=== PATIENT | male | born 1985 | race American Indian/Alaskan Native ===

== ENCOUNTER 2018-04-13 21:41 | Emergency (ER) | payer MEDICAID ==
[2018-04-13 21:48] VITALS: BP 184/109
--- NOTE | 2018-04-14 02:06 | Emergency Department Report ---
ED ENT HPI - General Chief complaint: Earache Stated complaint: LT EAR BUMP Time Seen by Provider: 04/14/18 01:59 Source: patient Mode of arrival: Ambulatory Limitations: No Limitations - History of Present Illness Initial comments: Patient 32-year-old male with left ear abscess abscess inner lobe, pain drainage yellow white thick malodorous x 3 days pain 4/10 soreness to palpation relieved by rest there is no hearing loss no fever on chills headache no dizziness no lightheadedness MD complaint: ear pain Onset/Timin -: days(s) Location: L ear Severity: moderate Severity scale (0 -10): 5 Quality: sharp Consistency: intermittent Improves with: rest Worsens with: movement, other (palpation) Associated Symptoms: discharge from ear. denies: tinnitus - Related Data Previous Rx's Medication Instructions Recorded Last Taken Type Cipro/Dexameth 0.3/0.1% [Ciprodex 4 drops OT BID 7 Days #1 bottle 04/14/18 Unknown Rx OTIC] Ibuprofen [Ibu] 800 mg PO TID PRN #30 tablet 04/14/18 Unknown Rx Allergies Allergy/AdvReac Type Severity Reaction Status Date / Time Penicillins Allergy Hives Verified 04/13/18 22:02 ED Dental HPI - General Chief complaint: Earache Stated complaint: LT EAR BUMP Time Seen by Provider: 04/14/18 01:59 Source: patient Mode of arrival: Ambulatory Limitations: No Limitations - Related Data Previous Rx's Medication Instructions Recorded Last Taken Type Cipro/Dexameth 0.3/0.1% [Ciprodex 4 drops OT BID 7 Days #1 bottle 04/14/18 Unknown Rx OTIC] Ibuprofen [Ibu] 800 mg PO TID PRN #30 tablet 04/14/18 Unknown Rx Allergies Allergy/AdvReac Type Severity Reaction Status Date / Time Penicillins Allergy Hives Verified 04/13/18 22:02 ED Review of Systems ROS: Stated complaint: LT EAR BUMP Other details as noted in HPI Constitutional: denies: chills, fever Eyes: denies: eye pain, eye discharge, vision change ENT: as per HPI, ear pain Respiratory: denies: cough, shortness of breath, wheezing Cardiovascular: denies: chest pain, palpitations Endocrine: no symptoms reported Gastrointestinal: denies: abdominal pain, nausea, diarrhea Genitourinary: denies: urgency, dysuria Musculoskeletal: denies: back pain, joint swelling, arthralgia Skin: denies: rash, lesions Neurological: denies: headache, weakness, paresthesias Psychiatric: as per HPI Hematological/Lymphatic: denies: easy bleeding, easy bruising ED Past Medical Hx - Past Medical History Previous Medical History?: No - Surgical History Past Surgical History?: No - Social History Smoking Status: Never Smoker Substance Use Type: None - Medications Home Medications: Home Medications Medication Instructions Recorded Confirmed Last Taken Type Cipro/Dexameth 0.3/0.1% [Ciprodex 4 drops OT BID 7 Days #1 bottle 04/14/18 Unknown Rx OTIC] Ibuprofen [Ibu] 800 mg PO TID PRN #30 tablet 04/14/18 Unknown Rx ED Physical Exam - General Limitations: No Limitations General appearance: alert, in no apparent distress - Head Head exam: Present: atraumatic - Eye Eye exam: Present: normal appearance, PERRL, EOMI - ENT ENT exam: Present: mucous membranes moist - Expanded ENT Exam Expanded Ear exam: Present: other (pinna abscess ) TM/Canal exam: Erythema: Left TM, Canal Discharge: Left TM, Canal Tenderness: Left TM Mouth exam: Present: normal external inspection Teeth exam: Present: normal inspection Throat exam: Positive: normal inspection - Neck Neck exam: Present: normal inspection. Absent: tenderness, meningismus, lymphadenopathy, thyromegaly - Respiratory Respiratory exam: Present: normal lung sounds bilaterally. Absent: respiratory distress, chest wall tenderness - Cardiovascular Cardiovascular Exam: Present: regular rate, normal rhythm, normal heart sounds. Absent: systolic murmur, diastolic murmur, rubs, gallop - GI/Abdominal GI/Abdominal exam: Present: soft, normal bowel sounds - Rectal Rectal exam: Present: deferred - Extremities Exam Extremities exam: Present: normal inspection - Back Exam Back exam: Present: normal inspection - Neurological Exam Neurological exam: Present: alert, oriented X3, CN II-XII intact, normal gait, reflexes normal - Psychiatric Psychiatric exam: Present: normal affect, normal mood - Skin Skin exam: Present: warm, dry, intact, normal color. Absent: rash ED Course Vital Signs 04/13/18 04/13/18 21:45 21:48 Temperature 98.7 F Pulse Rate 84 Respiratory 16 Rate Blood Pressure 184/109 [Right] O2 Sat by Pulse 98 Oximetry ED Medical Decision Making - Medical Decision Making This is otitis externa plan Ciprodex follow with ENT in 2-3 days ibuprofen when necessary pain patient verbalized agreement and understanding with same to DC to home stable condition at this time. Critical care attestation.: If time is entered above; I have spent that time in minutes in the direct care of this critically ill patient, excluding procedure time. ED Disposition Clinical Impression: Otitis media Qualifiers: Otitis media type: suppurative Chronicity: acute Laterality: left Recurrence: not specified as recurrent Spontaneous tympanic membrane rupture: without spontaneous rupture Qualified Code(s): H66.002 - Acute suppurative otitis media without spontaneous rupture of ear drum, left ear Abscess of ear canal Qualifiers: Laterality: left Qualified Code(s): H60.02 - Abscess of left external ear Disposition: DC-01 TO HOME OR SELFCARE Is pt being admited?: No Does the pt Need Aspirin: No Condition: Good Instructions: Otitis Externa (ED), Abscess (ED) Prescriptions: Cipro/Dexameth 0.3/0.1% [Ciprodex OTIC] 4 drops OT BID 7 Days #1 bottle Ibuprofen [Ibu] 800 mg PO TID PRN #30 tablet PRN Reason: pain Referrals: [facility] [Other] - 3-5 Days Forms: Work/School Release Form(ED) Time of Disposition: 02:13
== END 2018-04-14 02:16 | disposition home or self-care (01) ==
LOC: ED 21:41
DX: H66.002 Acute suppurative otitis media without spontaneous rupture of ear drum, left ear (principal); H60.02 Abscess of left external ear; Z88.0 Allergy status to penicillin
CPT/HCPCS: 99282

== ENCOUNTER 2018-05-19 00:42 | Emergency (ER) | payer SELFPAY ==
[2018-05-19 00:57] VITALS: BP 170/115
[2018-05-19] MEDS ORDERED: REGLAN IV ONE (01:50)
[2018-05-19] MEDS ORDERED: TORADOL IV ONE (01:50)
[2018-05-19] MEDS ORDERED: BENADRYL IV ONE (01:50)
--- NOTE | 2018-05-19 01:57 | Emergency Department Report ---
ED Headache HPI - General Chief Complaint: Headache Stated Complaint: HEADACHE Time Seen by Provider: 05/19/18 01:46 - History of Present Illness Initial Comments: 33-year-old -[place] male presents to the emergency room for headache with photosensitivity with no trauma that started Wednesday morning. Patient denies any nausea vomiting. He does admit to a tooth pain in the left upper jaw and sore throat. Patient tried [id number] Goody powders which she reports has not helped. It was noted the patient's blood pressure was elevated in triage of 170/115 with no past medical history of hypertension. Patient currently takes no medications on a daily basis and is allergic to penicillin which causes hives. Quality: severe, sharp, throbbing Recent Head Trauma: no recent headache/trauma Modifying Factors: improves with: exposure to light Associated Symptoms: facial pain. denies: loss of consciousness, nausea/ vomiting, nasal congestion, nasal drainage (left upper jaw pain), numbness in legs/feet, seizures, sinus infection, stiff neck, vision changes, weakness Allergies/Adverse Reactions: Allergies Penicillins Allergy (Verified 04/13/18 22:02) Hives Home Medications: Ambulatory Orders Cipro/Dexameth 0.3/0.1% [Ciprodex OTIC] 4 drops OT BID 7 Days #1 bottle Ibuprofen [Ibu] 800 mg PO TID PRN #30 tablet 04/14/18 Clindamycin [Clindamycin CAP] 300 mg PO Q8H #30 cap 05/19/18 Ibuprofen [Motrin 600 MG tab] 600 mg PO Q8H PRN #30 tablet 05/19/18 ED Review of Systems ROS: Stated complaint: HEADACHE Other details as noted in HPI Comment: All other systems reviewed and negative Constitutional: denies: chills, fever Eyes: denies: vision change ENT: throat pain, dental pain Cardiovascular: denies: chest pain Gastrointestinal: denies: nausea, vomiting ED Past Medical Hx - Past Medical History Previous Medical History?: No - Surgical History Past Surgical History?: No - Social History Smoking Status: Never Smoker Substance Use Type: None - Medications Home Medications: Home Medications Medication Instructions Recorded Confirmed Last Taken Type Cipro/Dexameth 0.3/0.1% [Ciprodex 4 drops OT BID 7 Days #1 bottle 04/14/18 Unknown Rx OTIC] Ibuprofen [Ibu] 800 mg PO TID PRN #30 tablet 04/14/18 Unknown Rx Clindamycin [Clindamycin CAP] 300 mg PO Q8H #30 cap 05/19/18 Unknown Rx Ibuprofen [Motrin 600 MG tab] 600 mg PO Q8H PRN #30 tablet 05/19/18 Unknown Rx ED Physical Exam - General Limitations: No Limitations ED Course Vital Signs 05/19/18 05/19/18 00:50 00:51 Temperature 99.9 F H 99.9 F H Pulse Rate 95 H 95 H Respiratory 18 18 Rate Blood Pressure 170/115 170/115 O2 Sat by Pulse 98 98 Oximetry ED Medical Decision Making - Radiology Data Radiology results: report reviewed FINAL REPORT EXAM: CT HEAD/BRAIN WO CON HISTORY: LARIOS COMPARISON: None available. TECHNIQUE: Axial images obtained skull base through vertex. FINDINGS: No acute intracranial hemorrhage, midline shift or pathologic extra axial fluid collection. Ventricles and cisterns are normal in size and configuration for the patient's age. Garcia-white differentiation preserved. Calvarium grossly intact. Visualized ocular globes are grossly unremarkable. Opacification left sphenoid sinus. Small air-fluid levels within the visualized maxillary sinuses. Mild mucosal thickening right sphenoid sinus and moderate mucosal thickening of the ethmoid air cells. Mastoid air cells are clear. IMPRESSION: No grossly acute intracranial abnormality. Transcribed By: LMA Dictated By: DAVID VELASQUEZ MD Electronically Authenticated By: DAVID VELASQUEZ MD Signed Date/Time: 05/19/18202 DD/ 2 TD/TT: 05/19/18202 - Medical Decision Making Patient has been evaluated by this provider fast track. Patient was given IV with Reglan, Benadryl, Toradol. CT scan was shows no acute abdomen allergies Blood pressure to be rechecked Critical care attestation.: If time is entered above; I have spent that time in minutes in the direct care of this critically ill patient, excluding procedure time. ED Disposition Clinical Impression: Partial loss of tooth due to caries, Sorethroat, Elevated BP without diagnosis of hypertension Headache Qualifiers: Headache type: unspecified Headache chronicity pattern: acute headache Intractability: intractable Qualified Code(s): R51 - Headache Disposition: DC-01 TO HOME OR SELFCARE Is pt being admited?: No Does the pt Need Aspirin: No Condition: Stable Instructions: Dental Caries (ED), Acute Headache (ED) Additional Instructions: Please complete antibiotics as prescribed. Take pain medication as needed. Please follow up with a dental provider I have this did several below as well as with the handout. Prescriptions: Clindamycin [Clindamycin CAP] 300 mg PO Q8H #30 cap Ibuprofen [Motrin 600 MG tab] 600 mg PO Q8H PRN #30 tablet PRN Reason: Pain Referrals: PRIMARY CARE, [Primary Care Provider] - 3-5 Days [facility] [Outside] - 3-5 Days [facility] [Outside] - 3-5 Days [facility] [Outside] - 3-5 Days [facility] [Provider Group] - 3-5 Days Forms: Work/School Release Form(ED)
--- NOTE | 2018-05-19 02:04 | Cat Scan Report ---
FINAL REPORT EXAM: CT HEAD/BRAIN WO CON HISTORY: LARIOS COMPARISON: None available. TECHNIQUE: Axial images obtained skull base through vertex. FINDINGS: No acute intracranial hemorrhage, midline shift or pathologic extra axial fluid collection. Ventricles and cisterns are normal in size and configuration for the patient's age. Garcia-white differentiation preserved. Calvarium grossly intact. Visualized ocular globes are grossly unremarkable. Opacification left sphenoid sinus. Small air-fluid levels within the visualized maxillary sinuses. Mild mucosal thickening right sphenoid sinus and moderate mucosal thickening of the ethmoid air cells. Mastoid air cells are clear. IMPRESSION: No grossly acute intracranial abnormality.
== END 2018-05-19 03:02 | disposition home or self-care (01) ==
LOC: ED 00:42
DX: R51 Headache (principal); K08.439 Partial loss of teeth due to caries, unspecified class; R07.0 Pain in throat; R03.0 Elevated blood-pressure reading, without diagnosis of hypertension; Z88.0 Allergy status to penicillin
CPT/HCPCS: 70450; 93005; 93010; 96374; 96375; 99283; J1200; J1885; J2765

== ENCOUNTER 2018-05-23 08:54 | Emergency (ER) | payer SELFPAY ==
[2018-05-23 09:18] VITALS: BP 163/109
[2018-05-23] MEDS ORDERED: DECADRON IM ONE (09:30)
[2018-05-23] MEDS ORDERED: CLEOCIN PO ONE (09:33)
[2018-05-23] MEDS ORDERED: MOTRIN PO ONE (09:59)
--- NOTE | 2018-05-23 10:15 | Emergency Department Report ---
Minor Respiratory - HPI Chief Complaint: Sore Throat Stated Complaint: SORE THROAT Time Seen by Provider: 05/23/18 09:26 Duration: 3 Days Pain Location: Throat Severity: moderate Minor Respiratory: Yes Sore Throat, Yes Able to Tolerate Fluids, No Rhinorrhea, No Ear Pain, No Cough, No Sick Contacts, No Hemoptysis, No Chest Pain, No Shortness of Breath, No Fever Other History: ON CLINDA BUT PT STATES NOT GETTING BETTER. HE HAS RX W HIM. HE IS ABLE TO SWALLOW BUT IT HURTS TO SWALLOW. NO FEVER. ED Review of Systems ROS: Stated complaint: SORE THROAT Other details as noted in HPI Constitutional: denies: chills, fever Eyes: denies: eye pain ENT: throat pain. denies: ear pain Respiratory: denies: cough, orthopnea Cardiovascular: denies: palpitations Endocrine: denies: excessive sweating, flushing Gastrointestinal: denies: abdominal pain, nausea, vomiting Genitourinary: denies: urgency, dysuria Musculoskeletal: denies: back pain Skin: denies: lesions Neurological: denies: headache Psychiatric: denies: anxiety Hematological/Lymphatic: denies: easy bleeding ED Past Medical Hx - Past Medical History Previous Medical History?: No - Surgical History Past Surgical History?: No - Social History Smoking Status: Never Smoker Substance Use Type: None - Medications Home Medications: Home Medications Medication Instructions Recorded Confirmed Last Taken Type Clindamycin [Clindamycin CAP] 300 mg PO Q6H #40 capsule 05/23/18 Unknown Rx predniSONE [Deltasone] 20 mg PO DAILY #5 tablet 05/23/18 Unknown Rx Minor Respiratory Exam - Exam General: Vital signs noted. No distress. Alert and acting appropriately. HEENT: Yes Pharyngeal Erythema, Yes Moist Mucous Membranes, No Pharyngeal Exudates, No Rhinorrhea, No Conjuctival Injection, No Frontal Tenderness, No Maxillary Tenderness Ear: Neither TM Bulge, Neither TM Erythema, Neither EAC Pain, Neither EAC Discharge Neck: Yes Adenopathy, Yes Supple Lungs: Yes Good Air Exchange, No Wheezes, No Ronchi, No Stridor, No Cough, No Labored Respirations, No Retractions, No Use of Accessory Muscles, No Other Abnormal Lung Sounds Heart: Yes Regular, No Murmur Abdomen: Yes Normal Bowel Sounds, No Tenderness, No Peritoneal Signs Skin: No Rash, No Edema Neurologic: Alert and oriented, no deficits. Musculoskeletal: Unremarkable. ED Course Vital Signs 05/23/18 09:15 Temperature 99.5 F Pulse Rate 79 Respiratory 20 Rate Blood Pressure 163/109 O2 Sat by Pulse 99 Oximetry ED Medical Decision Making - Medical Decision Making DID NOT TAKE RX LAST TIME HE WAS HERE NON TOXIC NO FEVER NO ABSCESS CONTROLLING SECRETIONS DURING EXAM HE DOES HAVE BAG THAT HE SPITS IN BC IT HURTS TO SWALLOW. TAKING PO PILLS AND FLUID IM INJECTION INC DOSE CLINDA ADD DOSE PACK FOLLOW UP DISCUSSED WITH PT AND - Differential Diagnosis PHARYNGITIS V TONSILITIS Critical care attestation.: If time is entered above; I have spent that time in minutes in the direct care of this critically ill patient, excluding procedure time. ED Disposition Clinical Impression: Sorethroat, Elevated BP without diagnosis of hypertension Disposition: - TO HOME OR SELFCARE Is pt being admited?: No Does the pt Need Aspirin: No Condition: Stable Instructions: Pharyngitis (ED), Hypertension (ED) Additional Instructions: HYDRATE WELL MOTRIN OR TYLENOL INCREASE THE DOSE OF CLINDA TO 600MG EVERY 8 HOURS FOLLOW UP NOTED BELOW ACTIVITY TOLERATED LOW SALT DIET NO FRIED FOODS FOLLOW UP WITH PCP DUE TO YOUR BLOOD PRESSURE BEING ELEVATED Prescriptions: Clindamycin [Clindamycin CAP] 300 mg PO Q6H #40 capsule predniSONE [Deltasone] 20 mg PO DAILY #5 tablet Referrals: PRIMARY CARE, [Primary Care Provider] - 3-5 Days [facility] [Outside] - 3-5 Days Time of Disposition: 10:15
[2018-05-23] MEDS ORDERED: CLEOCIN IM ONE (10:19)
[2018-05-23] MEDS ORDERED: NORCO 5/325 PO ONE (10:22)
== END 2018-05-23 10:36 | disposition home or self-care (01) ==
LOC: ED 08:54
DX: J02.9 Acute pharyngitis, unspecified (principal); R03.0 Elevated blood-pressure reading, without diagnosis of hypertension; Z88.0 Allergy status to penicillin
CPT/HCPCS: 87116; 87430; 96372; 99283; J1100

== ENCOUNTER 2018-11-18 12:25 | Emergency (ER) | payer OTHER ==
[2018-11-18] MEDS ORDERED: DECADRON IM ONE (13:01)
--- NOTE | 2018-11-18 13:02 | Emergency Department Report ---
Minor Respiratory - HPI Chief Complaint: Sore Throat Stated Complaint: SORE THROAT Time Seen by Provider: 11/18/18 13:01 Duration: 3 Days Pain Location: Throat Severity: mild Minor Respiratory: Yes Sore Throat, Yes Able to Tolerate Fluids, No Rhinorrhea, No Ear Pain, No Cough, No Sick Contacts, No Hemoptysis, No Chest Pain, No Shortness of Breath, No Fever Other History: 3 DAY HX SORE THROAT. NO COUGH. NO FEVER. OTC MEDS NOT HELPING. AMBULATORY AND NONTOXIC. BP ELEVATED BUT NO HX HTN. NO CP. NO SOB. NO HEADACHE ED Review of Systems ROS: Stated complaint: SORE THROAT Other details as noted in HPI Comment: All other systems reviewed and negative Constitutional: denies: chills Eyes: denies: eye pain ENT: as per HPI, throat pain Respiratory: denies: cough, orthopnea Cardiovascular: denies: chest pain, palpitations, dyspnea on exertion Endocrine: denies: excessive sweating Gastrointestinal: denies: nausea Genitourinary: denies: urgency Musculoskeletal: denies: back pain Skin: denies: lesions Neurological: denies: headache, weakness Psychiatric: denies: anxiety Hematological/Lymphatic: denies: easy bleeding ED Past Medical Hx - Past Medical History Previous Medical History?: No - Surgical History Past Surgical History?: No Additional Surgical History: WISDOM TEETH - Family History Family history: no significant - Social History Smoking Status: Current Every Day Smoker Substance Use Type: None - Medications Home Medications: Home Medications Medication Instructions Recorded Confirmed Last Taken Type Clindamycin [Clindamycin CAP] 300 mg PO Q6H #40 capsule 11/18/18 Unknown Rx Minor Respiratory Exam - Exam General: Vital signs noted. No distress. Alert and acting appropriately. HEENT: Yes Pharyngeal Erythema, Yes Pharyngeal Exudates, Yes Moist Mucous Membranes, No Rhinorrhea, No Conjuctival Injection, No Frontal Tenderness, No Maxillary Tenderness Ear: Neither TM Bulge, Neither TM Erythema, Neither EAC Pain, Neither EAC D ischarge Neck: Yes Supple, No Adenopathy Lungs: Yes Good Air Exchange, No Wheezes, No Ronchi, No Stridor, No Cough, No Labored Respirations, No Retractions, No Use of Accessory Muscles, No Other Abnormal Lung Sounds Heart: Yes Regular, No Murmur Abdomen: Yes Normal Bowel Sounds, No Tenderness, No Peritoneal Signs Skin: No Rash, No Edema Neurologic: Alert and oriented, no deficits. Musculoskeletal: Unremarkable. ED Course Vital Signs 11/18/18 12:32 Temperature 98.5 F Pulse Rate 91 H Respiratory 16 Rate Blood Pressure 172/118 [Right] O2 Sat by Pulse 98 Oximetry ED Medical Decision Making - Medical Decision Making Vital Signs 11/18/18 11/18/18 11/18/18 12:32 13:01 13:11 Temperature 98.5 F 98.5 F Pulse Rate 91 H 91 H Respiratory 16 18 Rate Blood Pressure 172/118 166/112 [Right] O2 Sat by Pulse 98 98 Oximetry NONTOXIC TAKING PO ABC INTACT BP ELEVATED WITH PAIN NO HX NO CP NO SOB NO HEADACHE MEDICATED AND DC HOME FROM TRIAGE. Critical care attestation.: If time is entered above; I have spent that time in minutes in the direct care of this critically ill patient, excluding procedure time. ED Disposition Clinical Impression: Pharyngitis, Elevated blood pressure reading Disposition: DC-01 TO HOME OR SELFCARE Is pt being admited?: No Does the pt Need Aspirin: No Condition: Stable Instructions: Pharyngitis (ED) Additional Instructions: DIET TOLERATED HYDRATE WELL WITH WATER ACTIVITY TOLERATED FOLLOW UP PCP IF PERSISTS MOTRIN OR TYLENOL FOR PAIN OR FEVER MED GIVEN TODAY MONITOR BP WE DISCUSSED Prescriptions: Clindamycin [Clindamycin CAP] 300 mg PO Q6H #40 capsule Referrals: [facility] [Outside] - 3-5 Days Forms: Work/School Release Form(ED) Time of Disposition: 13:09
[2018-11-18] MEDS ORDERED: IBUPROFEN PO ONE (13:04)
[2018-11-18] MEDS ORDERED: CLEOCIN IM ONE (13:04)
[2018-11-18 13:11] VITALS: BP 166/112
== END 2018-11-18 13:19 | disposition home or self-care (01) ==
LOC: ED 12:25
DX: J02.9 Acute pharyngitis, unspecified (principal); R03.0 Elevated blood-pressure reading, without diagnosis of hypertension; F17.200 Nicotine dependence, unspecified, uncomplicated
CPT/HCPCS: 96372; 99282; J1100